=== PATIENT | female | born 1980 | race African-American/Black ===

== ENCOUNTER 2021-03-31 22:53 | Inpatient (IN) | payer MEDICAID ==
[~2021-03-31] VITALS: Ht 162.6 cm; Wt 61.7 kg
--- NOTE | 2021-03-31 23:05 | NUR ---
Pt bibra c/o midepigastric pain and vomiting x3pm. Pt aaox4 breathing evenly and unlabored. Pt attached to monitor and pox. Skin is warm and dry. at bedside. LAC 20g initiated, blood drawn and sent to lab. Pt given blanket and call light within reach
[2021-03-31] MEDS ORDERED: ONDANSETRON HCL/PF 4 MG/2 ML VIAL ONE (23:10)
[2021-03-31] MEDS ORDERED: HYDROMORPHONE 1 MG/1 ML DISP.SYRIN ONE ×2 (23:10→23:56)
[2021-03-31] MEDS ORDERED: PANTOPRAZOLE 40 MG VIAL ONE (23:10)
[2021-03-31 23:18] LABS: BASOPHILS % (AUTO) 0.2 % (0.0-2.0); HEMATOCRIT 43 % (33-45); HEMOGLOBIN 13.7 g/dL (11.5-14.8); LYMPHOCYTES # (AUTO) 0.6 K/uL (0.8-4.8); MEAN CORPUSCULAR HGB CONC 32 g/dl (31.0-36.0); MEAN CORPUSCULAR VOLUME 93 fL (82-100); MONOCYTES # (AUTO) 0.4 K/uL (0.1-1.30); MONOCYTES % (AUTO) 3.2 % (2.0-12.0); NEUTROPHILS # (AUTO) 11.4 K/uL (1.8-8.9); NEUTROPHILS % (AUTO) 91.6 % (43.0-81.0); PLATELET COUNT (AUTO) 227 K/uL (150-450); RED BLOOD CELL COUNT(AUTO) 4.64 MIL/uL (4.0-5.2); WHITE BLOOD COUNT (AUTO) 12.4 K/uL (4.3-11.0)
--- NOTE | 2021-03-31 23:20 | NUR ---
covid swab sent to lab
[2021-03-31] MEDS ORDERED: HYDROMORPHONE INJ 2 MG/ML DISP.SYRIN IV ONE (23:30)
[2021-03-31] MEDS ORDERED: PANTOPRAZOLE 40 MG VIAL IV ONE (23:30)
[2021-03-31] MEDS ORDERED: ONDANSETRON HCL/PF 4 MG/2 ML VIAL IVP ONE (23:30)
--- NOTE | 2021-03-31 23:50 | NUR ---
us at bedside
[2021-03-31 23:52] LABS: CALCIUM, SERUM 9.4 mg/dL (8.5-10.1); CARBON DIOXIDE 20 mmol/L (21-32); CHLORIDE 101 mmol/L (98-107); GLUCOSE 227 mg/dL (74-106); POTASSIUM 3.3 mmol/L (3.5-5.1); SODIUM SERUM 141 mmol/L (136-145); UREA NITROGEN, BLOOD 10 mg/dL (7-18)
[2021-03-31 23:54] LABS: COLOR,URINE YELLOW (YELLOW); LEUKOCYTE ESTERASE ,URINE NEGATIVE (NEGATIVE); UGLUCOSE NEGATIVE (NEGATIVE); UROBILINOGEN,URINE 0.2 EU/dL (0.2)
[2021-03-31 23:57] LABS: ALANINE AMINOTRANSFERASE 13 U/L (12-78); ALBUMIN 4.3 g/dL (3.4-5.0); ALKALINE PHOSPHATASE 80 U/L (46-116); ASPARTATE AMINOTRANSFERASE 21 U/L (15-37); BILIRUBIN,DIRECT 0.2 mg/dL (0.0-0.2); BILIRUBIN,TOTAL 0.6 mg/dL (0.2-1.0); LIPASE 329 U/L (73-393); TOTAL PROTEIN, SERUM 8.8 g/dL (6.4-8.2)
[2021-04-01] VITALS (28 sets, daily range): BP systolic 91–134; BP diastolic 53–78
[2021-04-01] MEDS ORDERED: HYDROMORPHONE 1 MG/1 ML DISP.SYRIN IV ONE
[2021-04-01] MEDS ORDERED: IOHEXOL-300 100 ML VIAL IV ONE (00:11)
[2021-04-01] MEDS ORDERED: CT SWABBABLE VALVE TRANS SET 1 EA INFUS.SET MC ONE (00:11)
[2021-04-01] MEDS ORDERED: IV NS 0.9% 250 ML IV ONE (00:12)
[2021-04-01 00:13] LABS: RBC,URINE 21-50 /HPF (0-2)
[2021-04-01 00:14] LABS: BACTERIA,URINE Moderate /HPF (None Seen); SQUAMOUS EPITHELIAL CELL,UR Many /HPF (None Seen)
--- NOTE | 2021-04-01 00:22 | NUR ---
returned from radiology
--- NOTE | 2021-04-01 00:53 | NUR ---
DR DAHL PAGED PER DR AGRAWAL.
--- NOTE | 2021-04-01 00:55 | NUR ---
xray at bedside
--- NOTE | 2021-04-01 01:05 | NUR ---
DR DAHL PAGED PER DR AGRAWAL.
[2021-04-01] MEDS ORDERED: PIPERACILLIN /TAZOBACTAM 3.375 G VIAL IV ONE (01:09)
--- NOTE | 2021-04-01 01:20 | NUR ---
DR DAHL PAGED PER DR AGRAWAL.
[2021-04-01] MEDS ORDERED: PIPERACILLIN /TAZOBACTAM 3.375 G in IV D5W 50 ML IV ONE (01:30)
[2021-04-01] MEDS ORDERED: IV LR 1000 ML 1,000 ML IV ONE ×2 (01:30→05:00)
--- NOTE | 2021-04-01 02:08 | NUR ---
speaking with dr Hernandez
[2021-04-01 05:32] LABS: BILIRUBIN,URINE NEGATIVE (NEGATIVE); NITRITE, URINE POSITIVE (NEGATIVE); PROTEIN,URINE NEGATIVE (NEGATIVE)
--- NOTE | 2021-04-01 06:00 | NUR ---
PRE OP CHECKLIST COMPLETED
--- NOTE | 2021-04-01 06:20 | NUR ---
SPOKE TO KITCHEN OPERATORLENARD. WILL ARRIVE TO DIPLOMATIC OFFICER PT AT 0800
[2021-04-01] MEDS ORDERED: BUPIVACAINE MPF 0.5% W/EPI INJ 30 ML VIAL ONE (07:05)
[2021-04-01] MEDS ORDERED: SEVOFLURANE 250 ML BOTTLE IH ONE (07:05)
[2021-04-01] MEDS ORDERED: LIDOCAINE 1% INJ 50 ML MDV IJ ONE (07:06)
[2021-04-01] MEDS ORDERED: PANTOPRAZOLE 40 MG VIAL ONE (07:06)
[2021-04-01] MEDS ORDERED: BACITRACIN ZINC OINT PACKET 1 EA PACKET TP ONE (07:06)
[2021-04-01] MEDS ORDERED: MIDAZOLAM HCL 2 MG/2ML VIAL ONE (07:18)
[2021-04-01] MEDS ORDERED: ROCURONIUM BROMIDE 50 MG/5 ML ONE ×2 (07:18→10:15)
[2021-04-01] MEDS ORDERED: FENTANYL PF 250MCG/5ML AMPUL ONE (07:18)
[2021-04-01] MEDS ORDERED: LORAZEPAM INJ 2 MG/ML VIAL ONE (07:20)
--- NOTE | 2021-04-01 07:24 | NUR ---
pt refused ng tube insertion. aware
--- NOTE | 2021-04-01 07:24 | NUR ---
surgeon at bedside
[2021-04-01] MEDS: LORAZEPAM INJ 2 MG/ML VIAL IV PRN ×2 (07:25→07:32)
[2021-04-01] MEDS ORDERED: PANTOPRAZOLE 40 MG VIAL IV SCH ×2 (07:30)
--- NOTE | 2021-04-01 08:12 | NUR ---
PT TAKEN TO OR
[2021-04-01] MEDS ORDERED: LABETALOL HCL IV 100MG VIAL ONE (10:40)
--- NOTE | 2021-04-01 10:40 | NUR ---
PT GOING TO 258 AFTER OR, PER NURSING SUP.
--- NOTE | 2021-04-01 13:20 | NUR ---
PHARMACISTS NOTES RECEIVED PT FROM SURGERY, S/P EX LAP REPAIR OF PERFORATED DUODENAL ULCER BY DR. DAHL, LETHARGIC, RESPONDS TO NAME AND TOUCH, AOX 3, ON 3L O2 NASAL CANULA, O2 SAT 95%, RESPIRATION UNLABORED, NO SOB, NORMAL SINUS RHYTHM HR 65, DENIES PAIN AT THIS TIME, RT HAND G 20 WITH LR AT 150 ML/HR, SITE CLEAR, LEFT AC 20G FLUSHES WELL, BOTH SITES CLEAR. NGT IN PLACE TO LEFT NOSTRIL, ATTACHED TO LOW INTERMITTENT SUCTION, WITH GREENISH DRAINAGE. 3 SURGICAL SITE ON ABDOMEN WITH DRESSING IN PLACE, CDI AND TERESA DRAIN TO RIGHT LOWE QUADRANT WITH SEROSANGUINOUS DRAINAGE, DRAINED AT OR 150 ML PER SURGICAL STAFF PAT, INSERTED GODINEZ CATH 16FR, WITH CLOUDY YELLOW URINE DRAINING VIA GRAVITY. SKIN INTACT. MAY HAVE ICE CHIPS. BEDREST, SCD IN PLACE. UNIT ORIENTATION DONE AND USE OF CALL LIGHT.BED LOW LOCKED, SR UP X 2, ALL POST OP ORDERS CARRIED OUT. DR GUEVARA NOTIFIED OF ADMISSION. WILL CONT TO MONITOR.
[2021-04-01] MEDS ORDERED: ZOSYN IVPB 3.375 G in IV D5W 50ml IV SCH (13:58)
[2021-04-01] MEDS ORDERED: HYDROMORPHONE 1 MG/1 ML DISP.SYRIN IV PRN (14:00)
[2021-04-01] MEDS ORDERED: ONDANSETRON HCL/PF 4 MG/2 ML VIAL IVP PRN ×2 (14:00→15:00)
[2021-04-01] MEDS ORDERED: MAGNESIUM HYDROXIDE 30 ML UDC PO PRN (15:00)
[2021-04-01] MEDS ORDERED: ACETAMINOPHEN 325 MG TABLET PO PRN (15:00)
[2021-04-01] MEDS ORDERED: CEFEPIME 2 GM in IV D5W 100 ML IV SCH (15:00)
[2021-04-01] MEDS ORDERED: Z GUARD REMEDY 2 OZ OINT TP PRN (15:00)
[2021-04-01] MEDS ORDERED: ZOLPIDEM TARTRATE 5 MG TABLET PO PRN (15:00)
[2021-04-01] MEDS ORDERED: MAG HYDROX/AL HYDROX/SIMETH 30 ML UDC PO PRN (15:00)
[2021-04-01] MEDS ORDERED: IV NS 0.9% 1,000 ML IV PRN (15:00)
[2021-04-01] MEDS: IV LR 1000 ML 1,000 ML IV PRN ×2 (15:31→23:06)
[2021-04-01] MEDS ORDERED: PIPERACILLIN /TAZOBACTAM 3.375 G in IV D5W 50 ML IV SCH (15:34)
[2021-04-01] MEDS ORDERED: CEFEPIME 1 GM VIAL IM SCH (16:00)
[2021-04-01] MEDS ORDERED: VANCOMYCIN HCL 0.75 GM in IV D5W 250 ML IV SCH (16:00)
[2021-04-01] MEDS: PIPERACILLIN /TAZOBACTAM 3.375 G in IV D5W 50 ML IV SCH (16:23)
[2021-04-01] MEDS: POTASSIUM CL. PREMIX PERIPHER. 50 ML IV SCH ×4 (16:58→19:58)
[2021-04-01] MEDS ORDERED: IV NS 0.9% 500 ML IV PRN (17:00)
--- NOTE | 2021-04-01 19:11 | NUR ---
HOME WORKER CLOSING NOTES PT RESTING IN BED. AOX 3, ON 3L O2 NASAL CANULA, O2 SAT 95%, RESPIRATION UNLABORED, NO SOB, NORMAL SINUS RHYTHM HR 67, DENIES PAIN AT THIS TIME, RT HAND G 20 , SITE CLEAR, LEFT AC 20G FLUSHES WELL, WITH POTASSIUM 50 ML/HR AT THIS TIME. BOTH SITES CLEAR. NGT IN PLACE TO LEFT NOSTRIL, INSERTED GODINEZ CATH 16FR, WITH CLOUDY YELLOW URINE DRAINING VIA GRAVITY. SKIN INTACT. SCD IN PLACE. BED LOW LOCKED CALL LIGHT WITHIN REACH, ALL ORDERS ADDRESSED DURING SHIFT REPORT GIVEN TO REGISTERED NURSE
--- NOTE | 2021-04-01 20:00 | NUR ---
INDUSTRIAL ENGINEER. INITIAL ASSESSMENT. RECEIVED THE PT REST ON THE BED. AWAKE, ALERT, LETHARGIC.OXYGEN 3LVIA NASALCANNULA. SAT 95%. NO ACUTE DISTRESS NOTED. PROCESS DEVELOPER SHOWING NSR. IV RT AND LT HAND 2OG. IVF LR 150 ML/H FC PATENT URINE DRAINING. HOB ELEVATED. NGT INTERMITTENT SUCTION. HOB ELEVATED, AFEBRILE. WILL CONTINUE TO MONITOR VITALS.
[2021-04-01] MEDS: PANTOPRAZOLE 40 MG VIAL IV SCH (22:00)
[2021-04-02] VITALS (43 sets, daily range): BP systolic 100–128; BP diastolic 54–78
[2021-04-02] MEDS: PIPERACILLIN /TAZOBACTAM 3.375 G in IV D5W 50 ML IV SCH ×5 (01:36→23:17)
[2021-04-02 04:31] LABS: HEMATOCRIT 33 % (33-45); HEMOGLOBIN 10.9 g/dL (11.5-14.8); LYMPHOCYTES # (AUTO) 0.7 K/uL (0.8-4.8); LYMPHOCYTES % (AUTO) 9.9 % (20.0-44.0); MEAN CORPUSCULAR HGB CONC 33 g/dl (31.0-36.0); MEAN CORPUSCULAR VOLUME 92 fL (82-100); MONOCYTES # (AUTO) 0.4 K/uL (0.1-1.30); MONOCYTES % (AUTO) 5.6 % (2.0-12.0); NEUTROPHILS # (AUTO) 5.9 K/uL (1.8-8.9); NEUTROPHILS % (AUTO) 84.5 % (43.0-81.0); PLATELET COUNT (AUTO) 143 K/uL (150-450); RED BLOOD CELL COUNT(AUTO) 3.56 MIL/uL (4.0-5.2)
[2021-04-02 04:59] LABS: ALBUMIN 2.4 g/dL (3.4-5.0); BILIRUBIN,TOTAL 0.7 mg/dL (0.2-1.0); CALCIUM, SERUM 7.9 mg/dL (8.5-10.1); CREATININE 0.9 mg/dL (0.6-1.3); MAGNESIUM 1.4 mg/dL (1.8-2.4); PHOSPHORUS 3.2 mg/dL (2.5-4.9); POTASSIUM 3.8 mmol/L (3.5-5.1); TOTAL PROTEIN, SERUM 5.7 g/dL (6.4-8.2)
[2021-04-02] MEDS: IV LR 1000 ML 1,000 ML IV PRN ×2 (06:04→20:24)
--- NOTE | 2021-04-02 07:00 | NUR ---
am care given. pt awake, alert follow commands. telemetry monitor showing nsr. iv rt hand lr 150 ml/h. oxygen 6l via nasal cannula. sat 95%, no acute distress noted. abisai drain 100ml. surgical site dressing clean and dry. ngt low intermittent suction.
[2021-04-02] MEDS: PANTOPRAZOLE 40 MG VIAL IV SCH ×2 (08:18→20:25)
[2021-04-02] MEDS: Magnesium 1GM/D5W 100ML PREMIX 100 ML IV SCH ×4 (08:18→11:05)
[2021-04-02] MEDS ORDERED: IV NS 0.9% 500 ML IV ONE (12:00)
--- NOTE | 2021-04-02 18:00 | NUR ---
ICU/RN PM CARE PROVIDED.DUE MEDS ARE GIVEN ORDERED. MG-1.4.-4GM IV MGSO4 IV GIVEN .500 ML NS BOLUS IV GIVEN .NG TUBE CONNECTED TO LOW INTERMEDIATE SUCTION NO OUT PUT.RIGHT TERESA-200 ML OUTPUT. T-99.4. F/C DRAINING WITH 600 ML OF URINE FOR LAST 12 HRS. NO PAIN REPORTED AT THIS TIME.PT IS VERY WEAK BP STABLE..IV INFUSING ORDERED.CONTINUE MONITORING.
--- NOTE | 2021-04-02 19:35 | NUR ---
RN NOTE RECEIVED PT SLEEPING, EASILY AROUSABLE BY VERBAL STIMULI. ALERT AND ORIENTED, DENIES ANY PAIN AT THIS TIME, SURGICAL SITES DRESSINGS CLEAN AND DRY AND INTACT, WITH TERESA DRAIN NOTED WITH SEROSANGUINEOUS DRAINAGE. PT ON 6L O2 VIA NC, DENIES SOB, NO RESP DISTRESS NOTED. NGTUBE CONNECTED TO LOW INTERMITTENT SUCTION NOTED WITH GREENISH DRAINAGE. ON IVFLUIDS OF LR AT 150ML/HR, IV SITES INTACT AND PATENT. GODINEZ IN PLACE WITH YELLOW URINE OUTPUT WITH SOME SEDIMENTS. ALL SAFETY MEASURES IN PLACE WILL CONTINUE TO MONITOR.
--- NOTE | 2021-04-02 23:30 | NUR ---
RN NOTE PT SATING 100% ON 6L. TITRATED DOWN TO 4L. NO SIGNS OF DISTRESS. TOLERATING. WILL CONTINUE TO MONITOR.
[2021-04-03] VITALS (24 sets, daily range): BP systolic 95–148; BP diastolic 56–88
[2021-04-03] MEDS: IV LR 1000 ML 1,000 ML IV PRN ×3 (03:40→19:21)
[2021-04-03] MEDS: PIPERACILLIN /TAZOBACTAM 3.375 G in IV D5W 50 ML IV SCH ×4 (05:41→23:43)
--- NOTE | 2021-04-03 07:25 | NUR ---
RN NOTE PT SLEPT WELL. DENIES ANY PAIN ALL THROUGHOUT SHIFT. SURGICAL SITES WITH CLEAN DRY AND INTACT DRESSINGS. O2 TITRATED DOWN TO 2L. NO SIGNS OF DISTRESS. SATING AT 99%. CONTINUE ON IVFLUIDS LR AT 150ML/HR, INFUSING WELL. DRAINED 110ML SEROSANGUINEOUS FROM JPDRAIN, 200ML GASTRIC GREENISH DRAINAGE. PT WITH 350ML URINE OUTPUT DRAINING BY GRAVITY. REMAIN AFEBRILE. VS STABLE. ALL NEEDS WERE ATTENDED. KEPT CLEAN AND COMFORTABLE. WILL ENDORSE TO NEXT SHIFT NURSE FOR CHANTEL.
--- NOTE | 2021-04-03 07:51 | NUR ---
RN Note: Pt received alert awake oriented X 3. On 2LPM O2 via NC, No breathing distress noted. Denies pain & discomfort at this time. Afebrile. IV site intact, running with IV fluids as ordered. Surgical sites dressings clean/intact/dry. Abdomen soft to touch. TERESA drain intact. NGT to intermittent low suction with dark yellowish color drainage. F/C intact, draining well with gravity.Safety measures observed. Encourage pt to use call light for assistance. Continue to monitor closely.
[2021-04-03] MEDS: PANTOPRAZOLE 40 MG VIAL IV SCH ×2 (08:32→20:22)
[2021-04-03 11:54] LABS: BASOPHILS % (AUTO) 0.1 % (0.0-2.0); EOSINOPHILS % (AUTO) 0.3 % (0.0-6.0); HEMATOCRIT 31 % (33-45); HEMOGLOBIN 10.1 g/dL (11.5-14.8); LYMPHOCYTES # (AUTO) 1.3 K/uL (0.8-4.8); LYMPHOCYTES % (AUTO) 21.7 % (20.0-44.0); MEAN CORPUSCULAR HGB CONC 33 g/dl (31.0-36.0); MEAN CORPUSCULAR VOLUME 93 fL (82-100); MONOCYTES # (AUTO) 0.3 K/uL (0.1-1.30); MONOCYTES % (AUTO) 4.2 % (2.0-12.0); NEUTROPHILS # (AUTO) 4.5 K/uL (1.8-8.9); NEUTROPHILS % (AUTO) 73.7 % (43.0-81.0); PLATELET COUNT (AUTO) 144 K/uL (150-450); RED BLOOD CELL COUNT(AUTO) 3.32 MIL/uL (4.0-5.2); WHITE BLOOD COUNT (AUTO) 6.1 K/uL (4.3-11.0)
[2021-04-03 12:14] LABS: CALCIUM, SERUM 7.6 mg/dL (8.5-10.1); CREATININE 0.7 mg/dL (0.6-1.3); POTASSIUM 3.1 mmol/L (3.5-5.1)
[2021-04-03] MEDS ORDERED: POTASSIUM CHLORIDE 20 MEQ POWDER PACKET PO ONE (14:00)
[2021-04-03] MEDS: POTASSIUM CL. PREMIX PERIPHER. 50 ML IV SCH ×2 (15:00→16:22)
[2021-04-03] MEDS: Magnesium 1GM/D5W 100ML PREMIX PIGGYBACK IV SCH ×2 (17:25→18:25)
--- NOTE | 2021-04-03 19:20 | NUR ---
RN Note: Seen & evaluate by Dr. Yanez at bedside, received new orders to out of bed, may sit on chair, KCL IV 20meq, KCL PO 40 meq, Mag 20meq IV to replace electrolytes & BMP, MG, PH lab to check in AM & Ok to remove NG tube. Orders noted & carried out. NGT removed, no N/V noted. TERESA drain intact with serosanguineous drainage. Pt was able to sit on chair for 4 hours. No any complications noted during shift. Report given to PM shift RN at bedside for continuity of care.
--- NOTE | 2021-04-03 20:00 | NUR ---
Patient is A&Ox4. VSS. Afebrile. In no apparent signs of distress. Patient says she feels okay with tolerable abdominal pain and does not want any medication for pain. Denies any needs at this time. Will continue to monitor. Addendum: 04/05/21 at 0531 by GEORGI NAVAS RN wrong date 04/04*
--- NOTE | 2021-04-03 22:11 | NUR ---
RN opening notes Patient in bed resting comfortably with no distress noted. Breathing even and unlabored. On 3lpm O2 via nasal cannula tolerating well. Vital signs WNL. NPO. No complaint of pain or discomfort. Yeh cath in place and intact draining clear yellow with no foul odor urine. Will continue to monitor and to keep clean and dry.
[2021-04-04] VITALS (20 sets, daily range): BP systolic 94–175; BP diastolic 35–135
[2021-04-04 05:11] LABS: CALCIUM, SERUM 7.6 mg/dL (8.5-10.1); CREATININE 0.7 mg/dL (0.6-1.3); PHOSPHORUS 2.1 mg/dL (2.5-4.9); POTASSIUM 3.1 mmol/L (3.5-5.1)
[2021-04-04] MEDS: IV LR 1000 ML 1,000 ML IV PRN (05:29)
[2021-04-04] MEDS: PIPERACILLIN /TAZOBACTAM 3.375 G in IV D5W 50 ML IV SCH ×4 (05:29→23:25)
--- NOTE | 2021-04-04 06:29 | NUR ---
RN closing notes Vital signs remain stable. No significant change of condition. No complaint of pain or discomfort. No significant changed of condition. Nowak Catheter removed. Procedure well tolerated. Refused to be changed. Will endorsed to next shift for continuity of care. Addendum: 04/04/21 at 0704 by GENIE BEAUCHAMP RN Refused to remove nowak catheter. Requested that it be removed by the next nurse. Please disregard the above note about nowak catheter removal.
--- NOTE | 2021-04-04 07:04 | NUR ---
RN notes Endorsed to next shift to remove the catheter. Patient requested that the catheter be removed a little bit later as she still sleeping.
--- NOTE | 2021-04-04 08:00 | NUR ---
RN NOTES SEEN PATIENT IN THE BED A/O X4, REFUSED PAIN,NO ACUTE RESPIRATORY DISTRESS.ABDOMEN SOFT, PATIENT ROOM AIR. TERESA-40ML EMPTIED, REMOVED GODINEZ PER SURGEONS ORDER. ASSIST PATIENT OUT OF BED. WAS COMPLAINING OF DIZZINESS. AM CARE DONE. PATIENT PREFERRED TO SEAT ON THE CHAIT A WILE, PATIENT MOTIVATED CARE. CALL LIGHT WITHIN TO REACH. INFUSING LR @150 ML/HR ON RIGHT HAND, AND KCL 50ML/HR INTACT. WILL FOLLOW UP.
[2021-04-04] MEDS: PANTOPRAZOLE 40 MG VIAL IV SCH ×2 (08:36→20:12)
[2021-04-04] MEDS ORDERED: POTASSIUM CL. PREMIX PERIPHER. 50 ML IV SCH (09:00)
--- NOTE | 2021-04-04 09:02 | NUR ---
RN NOTES GET TO ORDER FROM SURGEON Dr DAHL PT EVALUATION, AND CLEAR LIQUID DIET. ORDER TAKEN AND CARRIED OUT.
--- NOTE | 2021-04-04 09:45 | NUR ---
RN NOTES PATIENT SITTING IN THE CHAIT TOLERATED BREAKFAST WELL, PO MEDICATION ADMINISTERED. SEEN HOSPITALIST Dr GUEVARA PATIENT WILL DOWNGRADED TO THE MED/SURGE UNIT WITH MEDICATION. WILL FOLLOW UP.
[2021-04-04] MEDS ORDERED: Sodium Phosphate 15 MMOL in IV NS 0.9% 245 ML IV SCH (10:00)
[2021-04-04] MEDS ORDERED: POTASSIUM CHLORIDE 20 MEQ POWDER PACKET PO ONE (10:00)
--- NOTE | 2021-04-04 11:45 | NUR ---
rn notes patient with the PT at this time walking in the hallway. patient stable, refused pain abisai-20ml, urinated after removal of nowak x2. burping. waiting for the bed med/surge unit downgrading. patient preferred to seat in the chair.
--- NOTE | 2021-04-04 16:00 | NUR ---
rn notes Transferred patient to the Med/Surge unit room 321 bed 1, patient afebrile, vs stable, no acute respiratory distress, refused pain, abisai-18ml empied at this time, patient urinated using bedside commode. patient refusing iv infusion, notified hospitalist Dr Aguilar, waiting for respond. bedside report given ERWIN Del Valle follow plan of care.
--- NOTE | 2021-04-04 16:15 | NUR ---
RN NOTES GET CALL BACK FROM SURGEON Dr NABILA MCLEAN TO STOP IV LR INFUSION. ORDER TAKEN AND CARRIED OUT. NOTIFIED [facility] MED/SURGE.
--- NOTE | 2021-04-04 16:23 | NUR ---
RN NOTE- TRANSFER FROM ICU / 40 Y/O FEMALE TRANSFERRED W BOWEL PERFORATION DUE TO DUODENAL ULCER. IV HEP LOCK #20 TO RT HAND, S/P LAPAROTOMY 04/01- TERESA TO RT SIDE ABDOMEN W SERO-SANGUINOUS DRAINAGE. DENIES PAIN AT PRESENT. 3.1 K WAS REPLACED IN ICU, PT AMBULATORY, USING BR, VOIDING / BMS. PO INTAKE CLEAR LIQUIDS. VS- 147/94, HR-80, RR- 20, T- 98.0, SATS 98% RA. SIDE RAILS UP X 2, BED LOCKED, CALL LIGHT IN REACH/ ASSIST / MONITOR.
--- NOTE | 2021-04-04 18:51 | NUR ---
RN CLOSING NOTE- PT W STABLE VS, PO INTAKE FAIR / CLEAR LIQUID DIET, IVF STOPPED BY . HEP LOCK TO RT HAND #20. PATENT/ UTILIZED FOR IV ABX. VOIDING IN BR W STEADY GAIT. DENIES PAIN. SIDE RAILS UP, BED LOCKED, CALL LIGHT IN REACH. MONITOR / ASSIST
--- NOTE | 2021-04-04 20:00 | NUR ---
Patient is A&Ox4. VSS. Afebrile. In no apparent signs of distress. Patient says she feels okay with tolerable abdominal pain and does not want any medication for pain. Denies any needs at this time. Will continue to monitor.
[2021-04-05] MEDS: PIPERACILLIN /TAZOBACTAM 3.375 G in IV D5W 50 ML IV SCH ×4 (05:44→23:35)
[2021-04-05 06:36] LABS: BASOPHILS % (AUTO) 0.2 % (0.0-2.0); EOSINOPHILS % (AUTO) 1.7 % (0.0-6.0); HEMATOCRIT 34 % (33-45); HEMOGLOBIN 11.1 g/dL (11.5-14.8); LYMPHOCYTES # (AUTO) 0.9 K/uL (0.8-4.8); LYMPHOCYTES % (AUTO) 26.4 % (20.0-44.0); MEAN CORPUSCULAR HGB CONC 33 g/dl (31.0-36.0); MEAN CORPUSCULAR VOLUME 91 fL (82-100); MONOCYTES # (AUTO) 0.3 K/uL (0.1-1.30); MONOCYTES % (AUTO) 8.4 % (2.0-12.0); NEUTROPHILS # (AUTO) 2.2 K/uL (1.8-8.9); NEUTROPHILS % (AUTO) 63.3 % (43.0-81.0); PLATELET COUNT (AUTO) 208 K/uL (150-450); RED BLOOD CELL COUNT(AUTO) 3.69 MIL/uL (4.0-5.2); WHITE BLOOD COUNT (AUTO) 3.5 K/uL (4.3-11.0)
[2021-04-05 06:47] LABS: CALCIUM, SERUM 8.2 mg/dL (8.5-10.1); CREATININE 0.8 mg/dL (0.6-1.3); PHOSPHORUS 3.1 mg/dL (2.5-4.9); POTASSIUM 3.6 mmol/L (3.5-5.1)
--- NOTE | 2021-04-05 06:56 | NUR ---
Continues to be A&Ox4. Patient reports feeling "okay" overnight. Just minimal abdominal discomfort. Patient tolerating IV ABX well, no ase. Patient steady when walking to bathroom, independent with self-care ADLs. 100cc serosanguineous output to TERESA drain R abdomen.
--- NOTE | 2021-04-05 07:30 | NUR ---
MS RN OPENING NOTE RECEIVED PT WITH EYES CLOSED, EASY TO AROUSE. A/O X4. PT IS STABLE ON ROOM AIR WITH NO SOB OR S/S OF RESPIRATORY DISTRESS NOTED. PT HAS NO C/O PAIN OR DISCOMFORT AT THIS TIME. IV ACCESS IN RIGHT HAND #20, INTACT AND PATENT. SAFETY PRECAUTIONS MAINTAINED. BED IN LOWEST LOCKED POSITION, HOB ELEVATED, SIDE RAILS UP X2. CALL LIGHT AND TABLE WITHIN REACH. WILL CONTINUE WITH PLAN OF CARE.
[2021-04-05] MEDS: PANTOPRAZOLE 40 MG VIAL IV SCH ×2 (08:20→20:38)
[2021-04-05 09:06] VITALS: BP 129/77
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
[2021-04-05 15:42] VITALS: BP 130/90
--- NOTE | 2021-04-05 18:33 | NUR ---
MS RN CLOSING NOTE PT IS AWAKE IN BED. A/O X4. PT IS STABLE ON ROOM AIR WITH NO SOB OR S/S OF RESPIRATORY DISTRESS NOTED. PT HAS NO C/O PAIN OR DISCOMFORT AT THIS TIME. IV ACCESS IN RIGHT HAND #20, INTACT AND PATENT. TERESA DRAIN NOTED TO RIGHT-SIDE ABDOMEN, EMPTIED 40CC SEROSANGUINEOUS DRAINAGE. ALL NEEDS HAVE BEEN MET. SAFETY PRECAUTIONS MAINTAINED AT ALL TIMES. BED IN LOWEST LOCKED POSITION, HOB ELEVATED, SIDE RAILS UP X2. CALL LIGHT AND TABLE WITHIN REACH. WILL ENDORSE TO ONCOMING NURSE FOR CHANTEL.
--- NOTE | 2021-04-05 19:25 | NUR ---
RN OPENING NOTES RECEIVED PT RESTING IN BED, ALERT/AWAKE, ABLE TO VERBALIZE ALL NEEDS. SHE DENIES PAIN, DENIES SOB AT THIS TIME. ON ROOM AIR AND MIKE WELL. AMBULATORY WITH SLOW STEADY GAIT. IV SITE: R-HAND #20G INTACT/PATENT. PT IN NO ACUTE DISTRESS. SAFETY MEASURES IN PLACE, BED IN LOWEST LOCKED POSITION, S/R UPX2, CALL LIGHT WITHIN REACH. WILL CONT TO MONITOR.
[2021-04-05 19:48] VITALS: BP 141/95
[2021-04-06] MEDS: PIPERACILLIN /TAZOBACTAM 3.375 G in IV D5W 50 ML IV SCH ×4 (06:08→23:29)
--- NOTE | 2021-04-06 06:56 | NUR ---
RN CLOSING NOTES PT RESTING IN BED, EASILY AROUSABLE TO STIMULI. DENIES PAIN/DISCOMFORT AT THIS TIME. RESPIRATIONS EVEN/UNLABORED. ABLE TO AMBULATE TO BR INDEPENDENTLY, WITH STEADY GAIT. TERESA DRAIN TOTAL OUTPUT 65ML. NO ACUTE EVENTS NOTED DURING THE NIGHT. SAFETY MEASURES MAINTAINED. ALL NEEDS ATTENDED TO.
--- NOTE | 2021-04-06 07:33 | NUR ---
MS RN OPENING NOTE RECEIVED AWAKE IN BED. A/O X4. PT IS STABLE ON ROOM AIR WITH NO SOB OR S/S OF RESPIRATORY DISTRESS NOTED. PT HAS NO C/O PAIN OR DISCOMFORT AT THIS TIME. IV ACCESS IN RIGHT HAND #20, INTACT AND PATENT. TERESA DRAIN NOTED TO RIGHT-SIDE ABDOMEN. SAFETY PRECAUTIONS MAINTAINED. BED IN LOWEST LOCKED POSITION, HOB ELEVATED, SIDE RAILS UP X2. CALL LIGHT AND TABLE WITHIN REACH. WILL CONTINUE TO MONITOR.
[2021-04-06 08:00] VITALS: BP 133/75
[2021-04-06] MEDS: PANTOPRAZOLE 40 MG VIAL IV SCH ×2 (08:19→21:00)
--- NOTE | 2021-04-06 14:53 | NUR ---
RN NOTE CHANGED TERESA DRAIN DRESSING ON RIGHT ABDOMEN. INCISION SITE CLEAN AND DRY WITH NO S/S OF INFECTION. TERESA EMPTIED OF 25 ML OF SEROSANGUINEOUS DRAINAGE. WILL CONTINUE WITH PLAN OF CARE.
[2021-04-06 16:06] VITALS: BP 124/72
--- NOTE | 2021-04-06 18:30 | NUR ---
RN NOTE PT C/O PAIN AND OBSERVED INFILTRATION AT IV SITE. REMOVED IV ACCESS PER PT REQUEST. PT DECLINED PAIN MEDICATION AT THIS TIME. EDUCATED PT ON RISKS AND BENEFITS OF REFUSING IV ACCESS. PT VERBALIZES UNDERSTANDING. STRING STUDIES DIRECTOR OQUENDO AWARE. WILL CONTINUE TO REINFORCE IMPORTANCE OF IV WHILE IN HOSPITAL.
--- NOTE | 2021-04-06 18:32 | NUR ---
MS RN CLOSING NOTE PT IS AWAKE IN BED. A/O X4. PT IS STABLE ON ROOM AIR WITH NO SOB OR S/S OF RESPIRATORY DISTRESS NOTED. PT HAS NO C/O PAIN OR DISCOMFORT AT THIS TIME. PT IS REFUSING IV REINSERTION AT THIS TIME. EDUCATED PT ABOUT RISKS AND BENEFITS OF IV ACCESS FOR MEDICATION ADMINISTRATION. PT VERBALIZED UNDERSTANDING. PHYSICAL SECURITY ENGINEER OQUENDO AWARE. TERESA DRAIN NOTED TO RIGHT-SIDE ABDOMEN, EMPTIED 35CC SEROSANGUINEOUS DRAINAGE. ALL NEEDS HAVE BEEN MET. SAFETY PRECAUTIONS MAINTAINED AT ALL TIMES. BED IN LOWEST LOCKED POSITION, HOB ELEVATED, SIDE RAILS UP X2. CALL LIGHT AND TABLE WITHIN REACH. WILL ENDORSE TO ONCOMING NURSE FOR CHANTEL.
--- NOTE | 2021-04-06 19:22 | NUR ---
RN NOTES PT IS AWAKE IN BED. A/O X4. PT IS STABLE ON ROOM AIR WITH NO SOB OR S/S OF RESPIRATORY DISTRESS NOTED. PT HAS NO C/O PAIN OR DISCOMFORT AT THIS TIME. PT IS REFUSING IV REINSERTION AT THIS TIME. EDUCATED PT ABOUT RISKS AND BENEFITS OF IV ACCESS FOR MEDICATION ADMINISTRATION X3. PT VERBALIZED UNDERSTANDING REFUSED X3. TERESA DRAIN NOTED TO RIGHT-SIDE ABDOMEN, EMPTY AT THIS TIME. ALL NEEDS HAVE BEEN MET. SAFETY PRECAUTIONS MAINTAINED AT ALL TIMES. BED IN LOWEST LOCKED POSITION, HOB ELEVATED, SIDE RAILS UP X2. CALL LIGHT AND TABLE WITHIN REACH. WILL CONTINUE TO MONITOR.
[2021-04-06 20:00] VITALS: BP 115/77
[2021-04-07] MEDS: PIPERACILLIN /TAZOBACTAM 3.375 G in IV D5W 50 ML IV SCH ×4 (05:15→23:29)
--- NOTE | 2021-04-07 06:39 | NUR ---
RN NOTES PT IS AWAKE IN BED. A/O X4. PT IS STABLE ON ROOM AIR WITH NO SOB OR S/S OF RESPIRATORY DISTRESS NOTED. PT HAS NO C/O PAIN OR DISCOMFORT AT THIS TIME. PT HAS IV ACCESS ON THE R WRIST 20 G PT REFUSING IVF AT THIS TIME. EDUCATED PT ABOUT RISKS AND BENEFITS OF TERESA DRAIN NOTED TO RIGHT-SIDE ABDOMEN WITH 50 CC ON SEROSANGUINEOUS DRAINAGE THROUGHOUT THE SHIFT. ALL NEEDS HAVE BEEN MET. SAFETY PRECAUTIONS MAINTAINED AT ALL TIMES. BED IN LOWEST LOCKED POSITION, HOB ELEVATED, SIDE RAILS UP X2. CALL LIGHT AND TABLE WITHIN REACH. WILL ENDORSE CARE TO DAY SHIFT NURSE.
--- NOTE | 2021-04-07 07:30 | NUR ---
MS RN OPENING NOTES: RECEIVED PATIENT IN BED AWAKE . A/O X4. PATIENT IS CALM AND COMFORTABLE. SHE IS STABLE ON ROOM AIR. NO RESPIRATORY DISTRESS NOTED. PATIENT HAS NO C/O PAIN OR DISCOMFORT AT THIS TIME. IV ACCESS IN RIGHT HAND #20, INTACT AND PATENT, NO REDNESS, SWELLING OR BLEEDING NOTED. TERESA DRAIN NOTED TO RIGHT-SIDE ABDOMEN. SAFETY PRECAUTIONS MAINTAINED. BED IN LOWEST LOCKED POSITION, HOB ELEVATED, SIDE RAILS UP X2. CALL LIGHT AND TABLE WITHIN REACH. WILL CONTINUE TO MONITOR.
[2021-04-07 08:00] VITALS: BP_SYST 134; BP_SYST 135; BP_DIAS 75
[2021-04-07] MEDS: PANTOPRAZOLE 40 MG VIAL IV SCH ×2 (08:24→21:24)
[2021-04-07 10:21] LABS: CALCIUM, SERUM 8.9 mg/dL (8.5-10.1); CREATININE 0.9 mg/dL (0.6-1.3); POTASSIUM 3.4 mmol/L (3.5-5.1)
[2021-04-07 10:33] LABS: BASOPHILS % (AUTO) 0.5 % (0.0-2.0); EOSINOPHILS % (AUTO) 1.8 % (0.0-6.0); HEMATOCRIT 36 % (33-45); LYMPHOCYTES # (AUTO) 1.4 K/uL (0.8-4.8); MEAN CORPUSCULAR HGB CONC 33 g/dl (31.0-36.0); MEAN CORPUSCULAR VOLUME 92 fL (82-100); MONOCYTES # (AUTO) 0.5 K/uL (0.1-1.30); MONOCYTES % (AUTO) 10.2 % (2.0-12.0); NEUTROPHILS # (AUTO) 2.7 K/uL (1.8-8.9); NEUTROPHILS % (AUTO) 57.5 % (43.0-81.0); PLATELET COUNT (AUTO) 295 K/uL (150-450); RED BLOOD CELL COUNT(AUTO) 3.95 MIL/uL (4.0-5.2); WHITE BLOOD COUNT (AUTO) 4.7 K/uL (4.3-11.0)
[2021-04-07] MEDS ORDERED: POTASSIUM CHLORIDE 20 MEQ TAB.PRT.SR PO SCH (11:00)
--- NOTE | 2021-04-07 12:45 | NUR ---
RN NOTES NOTED TERESA DRAIN INSERTION SITE WITH SOAKED DRESSING, REINFORCED DRESSING AND INFORMED DR. DAHL.
[2021-04-07] MEDS ORDERED: BACI/NEOM/POLY B OINT PKT 1 UDPKT PACKET TP SCH ×2 (13:00→14:00)
[2021-04-07 16:00] VITALS: BP 124/59
--- NOTE | 2021-04-07 18:35 | NUR ---
MS RN CLOSING NOTES: PATIENT RESTING IN BED AWAKE . A/O X4. PATIENT IS CALM AND COMFORTABLE. SHE IS STABLE ON ROOM AIR. NO RESPIRATORY DISTRESS NOTED. PATIENT HAS NO C/O PAIN OR DISCOMFORT AT THIS TIME. IV ACCESS IN RIGHT HAND #20, INTACT AND PATENT, NO REDNESS, SWELLING OR BLEEDING NOTED. TERESA DRAIN NOTED TO RIGHT-SIDE ABDOMEN. AWAITING FOR DR. DAHL FOR TERESA REMOVAL. ALL MEDS GIVEN ORDERED. PATIENT COMPLIANT WITH PLAN OF CARE.SAFETY PRECAUTIONS MAINTAINED. BED IN LOWEST LOCKED POSITION, HOB ELEVATED, SIDE RAILS UP X2. CALL LIGHT AND TABLE WITHIN REACH. WILL ENDORSE ONCOMING NURSE FOR CONTINUOUS OF THE CARE.
[2021-04-07 20:00] VITALS: BP 118/69
--- NOTE | 2021-04-07 20:21 | NUR ---
In bed alert and orientated X4 soft spoken MD here and he removed the TERESA covered with ABD dressing and paper tape on room air resp even and unlabored
--- NOTE | 2021-04-08 05:21 | NUR ---
continues to sleep at this hour TERESA removed by the surg earier in the shift abd dressing applied no pain medication needed ambulates indep
[2021-04-08] MEDS: PIPERACILLIN /TAZOBACTAM 3.375 G in IV D5W 50 ML IV SCH ×2 (05:32→12:17)
[2021-04-08 07:15] LABS: CALCIUM, SERUM 8.6 mg/dL (8.5-10.1); CREATININE 0.8 mg/dL (0.6-1.3); POTASSIUM 3.7 mmol/L (3.5-5.1)
--- NOTE | 2021-04-08 07:48 | NUR ---
RN OPENING NOTES Patient seen comfortably lying in bed, no apparent distress noted, respirations even and unlabored, no SOB, denies any pain or discomfort at this time. Call light left within reach, safety precautions in place, brakes locked, side rails up X 2, will monitor closely for any changes.
[2021-04-08 08:00] VITALS: BP 107/72
[2021-04-08] MEDS: PANTOPRAZOLE 40 MG VIAL IV SCH (08:02)
[2021-04-08] MEDS ORDERED: ACET-2605 PO (10:50)
[2021-04-08] MEDS ORDERED: AMOX-430 PO (10:50)
--- NOTE | 2021-04-08 11:18 | NUR ---
"SS Consult: PETER notified that pt. will be discharged today. PETER met with pt. bedside. Pt. is A&O x 4. Pt.'s mood is depressed with flat affect. Pt. is calm and cooperative. PETER provided pt. with residential placement at [facility] [[address] [facility] [address]; [phone]]. SW provided pt. with bus pass and bus route to stated residential. P. accepted. SW provided pt. with homeless resources for alternate shelters, warm meals, showers etc. Pt.accepted resources. Pt. refused to sign homeless waiver. It was placed in the pt.'s chart. PETER notified by Jose Mora DNP that pt. needs to return to [facility] on 04/13/2021 to follow up with Dr. Yanez. Noted. No closer shelters available all shelters are full. Year-round shelters: [facility] [address] [place] [address] ; [facility] [address] [place] [address]; [facility] [facility] [address] Winter Shelters: [facility] Provider: [facility] [place]et [place] Address: [address] [facility], [address] # of Beds: 47 Population Served: [facility] 6 | [facility] Meghana Almodovar [place] Provider: [facility] Address: [address] [place] [address], [address] # of Beds: 66 Population Served: [facility] [employer] [place] Provider: [facility] Address: [address] [facility], [address] # of Beds: 56 Population Served: [facility] Donavon [place] Provider: /[facility] Address: [address] [facility], [address] # of Beds: 49 Population Served: [facility] 8 | [facility] Provider: First to Serve Address: [address] [facility], [address] # of Beds: 37 Population Served: [facility]: [facility]: [address] [address] [place]. [place] ; [facility] [address] [facility] ; [facility] [address] [facility], [place] . Food Resources: [place] [facility] at [facility]- [address] [place]; Meet Each Need with Dignity ([facility]) [address] [facility] [employer] [facility] HospitalEvelina [place]; [facility] [address] [facility]; [facility] [address] [facility]. Mental Health resources provided: [facility] [address] [place], [place] [id number] ; [facility] [place] [address] [facility] [address], [place], [place] [id number] ; [facility] [address] [facility] [place] [address] ; [facility] [address] [place], [place] [id number] Healthcare Clinics: [facility] [address] [facility], [address] [place]. [place] ; [facility] [address] [facility] [address] [place] [address]; [facility] [address] [address] [facility]. [place] [phone] Counseling--Outpatient [facility] [address] [facility], [place] [address] (Specializes in in-depth psychotherapy for emotional distress: anxiety, depression, interpersonal conflicts, life transitions, childhood abuse) [facility] [address] [place], [place] [phone] (Assist with solving problem marital difficulties, separation & divorce, aging parents, & grief, chronic & terminal illness) [facility] [address] [place] [address] (Deal with loss & grief, anxiety, marital difficulties) Homebound/Mental Health Services [address] [facility], [address] [place] [address] (Provide in-home mental services to people who are incapable of leaving their homes) [facility] Elderly Senior Service/Resource Center [address] [place] [address] [facility] [address] [facility] [place] [address] PSYCHIATRIC OUTPATIENT SERVICES [facility] Partial Hospitalization and Intensive Outpatient Program (Managed Care and [place] Only)[address] [facility] [facility] [phone] [facility] Partial Hospitalization and Outpatient [id number] [place] [address] [place], [place] [phone] [facility] [place] Kam[address] [place], [place] [phone] [facility] Partial Hospitalization and Outpatient Oprzuyt65498 [place], [phone] Substance Abuse resources provided included: [facility] Substance Abuse Self-Helpline ([facility]) ; [facility] [address] [facility]. [place] [address] ; [facility] [address] [facility] [address] ; [facility] Rehabilitation Program [address] [place] [facility] [address] ; [facility] [address] [facility] [address] ; [facility] [address] [facility] [address] ; [facility] [address] [facility] [phone] ; [facility] Substance Abuse Helpline([facility] ; [facility] ; [facility] [place]; [facility]; [facility] [place]; [facility] Slade Horne; [facility] [place]; Bailey Forgan [place]; [facility] [place]; [facility], [facility]. Cheli Atkinson; Alcoholics Anonymous -[facility]; Archie ; Marijuana Anonymous -[facility]; Narcotics Anonymous [email or web address];"
--- NOTE | 2021-04-08 13:31 | NUR ---
Patient to be discharged home today, no apparent distress noted, no nausea, no vomiting denies any pain or discomfort, abdominal bowel sound present in all quadrants, no grimacing when abdomen palpated. Patient made aware of the situation, she signed all discharge paperworks, all belongings taken, inventory list signed by patient. Health teaching provided, verbalized understanding and gratitude. Skin assessment done prior to discharge, skin intact, warm to touch, no pallor or cyanosis noted, noted to have 3 lap sites on her abdominal area and previous Jtube site, no excessive bleeding noted, no s/s of infection, no redness, no abnormal drainage, patient preferred not to have pictures of her abdomen site taken, explained risks and benefits thrice, still refused, respected patient's wish. Patient to have follow up appointment with Dr. Yanez, office address and office phone number given to patient. Patient provided with PO ATB, gilberto teaching provided, verbalized understanding and gratitude. Peripheral IV removed prior to discharge and covered with dry dressing. Name wristband removed prior to discharge. RN assisted patient going to the hospital parking lot via wheelchair, left unit at 1325pm, stable condition, exit care documents and 2 bus pass tap cards handed to patient.
== END 2021-04-08 13:45 | disposition home or self-care (01) | DRG 223 ==
LOC: ER 22:59 → TRANSITION 04-01 06:47 → ICU 04-01 13:00 → MED 04-04 16:03
PROVIDERS: ADMIT Internal Medicine; ATTEND Nurse Practitioner Family
PROC: 0DU907Z Supplement Duodenum with Autologous Tissue Substitute, Open Approach (ICD-10-PCS; principal; 2021-04-01)
DX: K26.5 Chronic or unspecified duodenal ulcer with perforation (principal); K65.9 Peritonitis, unspecified; E88.89 Other specified metabolic disorders; Z59.00 Homelessness unspecified; Z20.822 Contact with and (suspected) exposure to COVID-19; E87.6 Hypokalemia
CPT/HCPCS: 36415; 71045-TC; 76705-TC; 80048-TC; 80053-TC; 80076-TC; 81001; 82010-TC; 82150-TC; 83605-TC; 83690-TC; 83735-TC; 84100-TC; 84484-TC; 84703-TC; 85025-TC; 85730-TC; 86850-TC; 87081-TC; 87086-TC; 97112-TC; 97116-TC; 97530-TC; A4217; A6209; A9563; C9113; C9803; G0378; J0330; J0690; J0692; J1100; J1170; J1885; J2060; J2250; J2405; J2543; J2704; J3010; J3370; J3475; J3480; J3490; J7030; J7040; J7050; J7060; J7120; Q9967